=== PATIENT | male | born 1970 | race Two or more races ===

== ENCOUNTER 2024-08-30 08:22 | Emergency (ER) | payer BC, OTHER ==
[~2024-08-30] VITALS: Ht 175.3 cm; Wt 123.7 kg
[2024-08-30 09:33] VITALS: BP 155/99; PULSE 111; RESP 16; TEMP 99.7; O2SAT 97
--- NOTE | 2024-08-30 10:00 | ED.PDOC ---
Musculoskeletal HPI Comments This is a 53-year-old gentleman that comes in with left knee pain. He has had chronic pain for approximately 1 year. Patient states that yesterday he was getting out of a car and felt like he tweaked his knee a little bit. He did not not have any swelling he just had a period of sharp pain and burning sensation. He has a new ortho that he is going to see in October for an of pending cortisone shot or maybe surgical evaluation.. Denies any falls or recent trauma to his knee. Chief Complaint: Lower Extremity Time Seen by MD: 09:55 Primary Care Provider: MARTIN Reviewed Notes: Nurses Notes, Medications, Allergies Allergies: Coded Allergies: Codeine (Verified Allergy, Severe, 08/30/24) Penicillins (Verified Allergy, Severe, 08/30/24) Information Source: Patient Mode of Arrival: Ambulatory Past Medical History PAST MEDICAL HISTORY: HTN Surgical History: Denies all surgeries Social History Alcohol: Denies ETOH Use Drugs: Denies Drug Use Lives In: Home Musculoskeletal: reports: joint pain, joint swelling, muscle stiffness, others (left knee) Physical Exam General Appearance: No Apparent Distress, Normal HEENT: Normal ENT Inspection, PERRL/EOMI, Pharynx Normal, TMs Normal Neck: Full Range of Motion, Non-Tender, Normal Inspection, Supple Respiratory: Lungs Clear, No Respiratory Distress, Normal Breath Sounds Cardiovascular: Regular Rate/Rhythm Breast Exam: Deferred Gastrointestinal: Non Tender, Normal Bowel Sounds, Soft Genitalia: Deferred Pelvic: Deferred Rectal: Deferred Extremities: Normal capillary refill, Normal inspection, Normal range of motion, Tender, Other (left knee) Neurologic: Alert, Normal Affect, Normal Mood Cerebellar Function: NOT DONE Reflexes: Normal Skin: Dry, Warm Lymphatic: No Adenopathy Was a procedure done? Was a procedure done?: No Differential Diagnosis EXT Differential Diagnosis: Cellulitis, Compartment Syndrome, Fracture X-Ray, Labs, Meds, VS Vital Signs Date Time Temp Pulse Resp B/P (MAP) Pulse Ox O2 Delivery O2 Flow Rate FiO2 08/30/24 09:33 99.7 111 16 155/99 (117) 97 99.7 08/30/24 09:33 111 16 97 Room Air 08/30/24 08:43 99.7 111 16 155/99 (117) 97 99.7 Current Medications Medications (Trade) Dose Ordered Sig/Angela Route Start Time Stop Time Status Last Admin Ketorolac Tromethamine (Toradol Injection) 60 mg ONCE ONCE IM 08/30/24 10:00 08/30/24 10:03 DC 08/30/24 10:18 X-Ray, Labs, Meds, VS Comment Patient seen and examined by me. Patient has a little bit of an injury to his knee although he describes it just as a burning sensation. He denies any falls no swelling I offered an x-ray was not interested in that. He has an ortho appointment coming up in October. Patient will be given a Toradol shot here plus a swab for his left knee. I did tell him that he should call the ortho office let them know that he was here in the ER over the weekend and they can expedite his visit. I will send him home on Motrin. Patient felt better after the Toradol shot.. Time of 1ST Reevaluation: 10:37 Reevaluation 1ST: Improved Patient Education/Counseling: Diagnosis, Treatment, Prognosis, Need For Follow Up Family Education/Counseling: No Family Present Departure 1 Departure Time of Disposition: 10:37 Impression: Primary Impression: Left knee pain Disposition: 01 HOME / SELF CARE / HOMELESS Condition: Good Additional Instructions: Follow-up with your new orthopedic doctor. I would call tomorrow and let them know you were in the ER and see if They have any cancellations Use the Sridhar wrap as much as possible to help with support Take Motrin as needed with food for pain e-Prescriptions Ibuprofen Micronized (Ibuprofen) 600 Mg Tab 600 MG PO Q6HPRN PRN for 5 Days, #20 TAB Prov: LAKHWINDER MENDEZ 08/30/24 Discharged With: Self Critical Care Note Critical Care Time?: No Stability Stability form required: No LAKHWINDER MENDEZ Aug 30, 2024 10:00
[2024-08-30] MEDS: KETOROLAC TROMETH 60MG/2ML VIAL IM ONE (10:18)
[2024-08-30] MEDS ORDERED: IBUP1TAB5 PO (10:40)
== END 2024-08-30 10:44 | disposition home or self-care (01) ==
LOC: ER 08:22
DX: M25.562 Pain in left knee (principal); I10 Essential (primary) hypertension; Z88.5 Allergy status to narcotic agent; Z88.0 Allergy status to penicillin
CPT/HCPCS: 96372; 99283; J1885